=== PATIENT | female | born 1980 | race Caucasian/White ===

== ENCOUNTER 2017-05-16 13:53 | Emergency (ER) | payer OTHER ==
--- NOTE | 2017-05-16 14:26 | RAD ---
Left wrist, 3 views, 05/16/2017: History: Fall, wrist pain No fracture or dislocation is identified. There is mild soft tissue swelling. IMPRESSION: No acute bony abnormality is detected.
--- NOTE | 2017-05-16 14:30 | PHYS DOC ---
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 Pain at the medial and anterior wrist in the thenar eminence no other injuries Allergies: Coded Allergies: diphenhydramine (Verified Allergy, Unknown, 05/16/17) morphine (Verified Allergy, Unknown, 05/16/17) Orders, Labs, Meds PATIENT: TAYLA CROWELL ACCOUNT: [id number] : 1980 LOCATION: ER AGE: 36 SEX: F EXAM STATUS: PRE ER ORD. PHYSICIAN: LAURA SHARMA DO REASON: PAIN S/P FALL PROCEDURE: WRIST 3V LEFT Left wrist, 3 views, 05/16/2017: History: Fall, wrist pain No fracture or dislocation is identified. There is mild soft tissue swelling. IMPRESSION: No acute bony abnormality is detected. DICTATED AND SIGNED BY: LEODAN RODAS MD DATE: 05/16/171422 CC: LAURA SHARMA DO ~ PATIENT: TAYLA CROWELL ACCOUNT: [id number] : 1980 LOCATION: ER AGE: 36 SEX: F EXAM STATUS: PRE ER ORD. PHYSICIAN: LAURA SHARMA DO REASON: PAIN S/P FALL PROCEDURE: HAND LEFT 3V Left hand, 3 views, 05/16/2017: History: Fall, hand pain No fracture or dislocation is identified. IMPRESSION: No acute bony abnormality is detected. DICTATED AND SIGNED BY: LEODAN RODAS MD DATE: 05/16/171426 CC: LAURA SHARMA DO ~ Departure Time of Disposition: 14:44 Disposition: 01 HOME, SELF-CARE Diagnosis: left wrist sprain/contusion, mechanical fall Condition: GOOD Patient Instructions: RICE - Routine Care for Injuries, Wrist Splint, Easy-to- Read Additional Instructions: RICE, see handout. Wear Velcro wrist splint and/or Ismael wrap as needed for symptom control. Activity as tolerated. Tylenol 650 mg by mouth every 4 hours when necessary pain, Motrin 600 mg every 6 hours as needed for pain Follow-up with the facility physician in 10-14 days for recheck. Return to ED with new or changing symptoms. LAURA SAHRMA DO May 16, 2017 14:30
[2017-05-16 15:16] VITALS: BP 138/76
== END 2017-05-16 15:16 | disposition home or self-care (01) ==
LOC: ER 13:53
DX: M25.532 Pain in left wrist (principal); Z88.8 Allergy status to other drugs, medicaments and biological substances; Z88.5 Allergy status to narcotic agent; W01.0XXA Fall on same level from slipping, tripping and stumbling without subsequent striking against object, initial encounter; Y93.89 Activity, other specified; Y99.8 Other external cause status; Y92.89 Other specified places as the place of occurrence of the external cause
CPT/HCPCS: 29125; 73110; 73130; 99284

== ENCOUNTER → 2017-07-11 | Outpatient (CLI) | payer OTHER ==
--- NOTE | 2017-07-11 15:38 | RAD ---
Pelvic ultrasound, 07/11/2017: History: Abnormal uterine bleeding Transabdominal and transvaginal scans were obtained. The uterus measures 9.5 x 4.8 x 4.0 cm. There is thickening of the central uterine echo complex which measures 1.6 cm in AP dimension on the transvaginal scans. A small Nabothian cyst is present in the cervix. The left ovary measures 3.6 x 3.6 x 3.1 cm. It contains a 3.2 cm cyst. The right ovary was not visible transvaginally. Transabdominally it appears to be of normal size. The adnexal regions are otherwise unremarkable. No free fluid is evident in the pelvis. IMPRESSION: 1. Nonspecific thickening of the central uterine echo complex with diagnostic considerations including endometrial hyperplasia or a polyp. Malignancy cannot be excluded. 2. Small left ovarian cyst.
== END | disposition home or self-care (01) ==
LOC: EEVIPCON 07-08 10:00 → US 10:34
PROVIDERS: ATTEND Preventive Medicine Occupational Medicine
DX: N83.202 Unspecified ovarian cyst, left side (principal); N93.9 Abnormal uterine and vaginal bleeding, unspecified
CPT/HCPCS: 76830; 76856